=== PATIENT | male | born 1990 | race Caucasian/White ===

== ENCOUNTER 2023-02-17 16:30 | Emergency (ER) | payer OTHER ==
[~2023-02-17] VITALS: Ht 177.8 cm; Wt 109.0 kg
[2023-02-17] MEDS ORDERED: KETOROLAC 60MG/2ML VIAL IM STA (16:56)
[2023-02-17 17:21] LABS: BASOPHILS % 0.5 % (0.0-2.0); EOSINOPHILS % 2.5 % (0.0-5.0); HEMATOCRIT. 46.4 % (42.0-52.0); HEMOGLOBIN. 16.1 g/dL (14.0-18.0); LYMPHOCYTES % 35.4 % (20.0-50.0); MEAN CORPUSCULAR HEMOGLOBIN 31.5 pg (28.0-32.0); MEAN CORPUSCULAR VOLUME 90.6 fL (80.0-94.0); MONOCYTES % 5.9 % (2.0-8.0); NEUTROPHILS % 55.7 % (40.0-76.0); PLATELET 253 x1000/uL (130-400); RED BLOOD CELL COUNT 5.12 mill/uL (4.7-6.1)
[2023-02-17 17:27] LABS: CHLORIDE 106 mEq/L (98-107)
[2023-02-17 17:38] LABS: ETHANOL BLOOD < 10 mg/dL
[2023-02-17] MEDS ORDERED: KETOROLAC 60MG/2ML VIAL IM SCH (18:45)
[2023-02-17] MEDS ORDERED: FAMOTIDINE 20MG TABLET PO SCH (19:00)
[2023-02-17 21:08] LABS: CLARITY URINE CLEAR (CLEAR); COLOR URINE YELLOW (YELLOW); KETONES URINE NEGATIVE (NEGATIVE); LEUKOCYTE ESTERASE URINE NEGATIVE (NEGATIVE); NITRITE URINE NEGATIVE (NEGATIVE); OCCULT BLOOD URINE NEGATIVE (NEGATIVE); PROTEIN URINE TRACE (NEGATIVE); SPECIFIC GRAVITY URINE 1.028 (1.005-1.030)
[2023-02-17 22:00] VITALS: BP 147/75
== END 2023-02-17 23:51 | disposition home or self-care (01) ==
LOC: ER 16:30
DX: R10.11 Right upper quadrant pain (principal); K76.0 Fatty (change of) liver, not elsewhere classified; Z87.19 Personal history of other diseases of the digestive system; Z98.890 Other specified postprocedural states
CPT/HCPCS: 36415; 71045; 76705; 80053; 80320; 81003; 83690; 85025; 96372; 99285; J1885; G0480